=== PATIENT | female | born 1960 | race Caucasian/White ===

== ENCOUNTER 2018-07-31 13:37 | Emergency (ER) | payer OTHER ==
[~2018-07-31] VITALS: Ht 152.4 cm; Wt 74.4 kg
[2018-07-31] MEDS ORDERED: ZOCOR20 MG PO (13:46)
[2018-07-31] MEDS ORDERED: ARAVA10 MG PO (13:46)
[2018-07-31] MEDS ORDERED: AMLODIPINE BESY10 MG PO (13:47)
[2018-07-31] MEDS ORDERED: SINGULAIR 10 MG10 M1 PO (13:47)
[2018-07-31] MEDS ORDERED: PREVACID15 MG PO (13:47)
[2018-07-31] MEDS ORDERED: POTASSIUM20 PO (13:48)
[2018-07-31] MEDS ORDERED: MUCINEX600 MG PO (13:48)
[2018-07-31] MEDS ORDERED: ALBUTEROL2.5 MG/31 INH (13:49)
[2018-07-31] MEDS ORDERED: AZITHROMYCIN 2250 MG PO (17:17)
[2018-07-31] MEDS ORDERED: IPRAT-ALBUT 0.5-3 ML INJECTION (17:17)
[2018-07-31] MEDS ORDERED: PREDNISONE 20 M20 MG PO (17:17)
[2018-07-31 18:03] VITALS: BP 137/77
== END 2018-07-31 18:04 | disposition home or self-care (01) ==
LOC: M.ERS 13:37
DX: J45.901 Unspecified asthma with (acute) exacerbation (principal); J98.11 Atelectasis; M06.9 Rheumatoid arthritis, unspecified; Z90.49 Acquired absence of other specified parts of digestive tract; Z88.8 Allergy status to other drugs, medicaments and biological substances